=== PATIENT | female | born 1975 | race Caucasian/White ===

== ENCOUNTER → 2020-10-24 | Outpatient (CLI) | payer OTHER ==
[~2020-10-24] VITALS: Ht 167.6 cm; Wt 141.5 kg
[~2020-10-24] MED LIST: ALEVE220 M1 PO; BENADRYL25 MG PO; EPIPEN0.3 MG/0.1 IM; GABAPENTIN100 MG PO; MENOPAUSE SUPPO20 MG PO; METFORMIN HCL500 M3 PO; NORFLEX100 MG PO; OMEPRAZOLE 20 M20 M1 PO; PHENTERMINE H37.5 MG PO; PROPRANOLOL 8080 MG PO; SUPER THERAVIT1 EACH PO; SYNTHROID175 MCG PO; TRAMADOL 50 MG50 MG PO; TYLENOL325 M1 PO; VITAMIN D PO
[2020-10-24 11:15] VITALS: BP 140/84
--- NOTE | 2020-10-24 12:05 | NUR ---
Pain Clinic Assessment: 1. History of Osteoarthritis: * BACK ? History of Rheumatoid Arthritis: NO 2. Height: 5 ft. 6 in. 167.6 cm. Weight: 312.0 lb. oz. 141.523 kg. Patient's BMI: 50.4 3. Vital Signs: BP: 140/84 Pulse: 71 Resp: 16 Temp: 02 Sat: 98 ECG Mon: 4. Pain Intensity: 5 5. Fall Risk: Dizziness: N Needs help standing or walking: N Fallen in the last 3 months: N Fall risk comments: 6. Patient on Blood Thinner: None 7. History of Hypertension: N 8. Opioid Therapy greater than 6 weeks: Opiate Contract Signed: 9. Risk Assessment Tool Provided: 1-low risk 10. Functional Assessment Tool: 11. Recreational Drug Use: Never Drug Type: Tobacco Use: Never Smoker Tobacco Type: Amount or Packs/day: How Many Years: Alcohol Use: Yes Frequency: Weekly Quant: 3/WEEK
== END ==
LOC: PAIN 06:55
PROVIDERS: ATTEND Anesthesiology Pain Medicine
DX: M51.14 Intervertebral disc disorders with radiculopathy, thoracic region (principal); M51.24 Other intervertebral disc displacement, thoracic region; Z88.8 Allergy status to other drugs, medicaments and biological substances; Z79.899 Other long term (current) drug therapy

== ENCOUNTER → 2020-10-31 | Outpatient (CLI) | payer OTHER ==
[~2020-10-31] VITALS: Ht 167.6 cm; Wt 143.8 kg
[2020-10-31 15:11] VITALS: BP 155/96
--- NOTE | 2020-10-31 15:34 | NUR ---
Pain Clinic Assessment: 1. History of Osteoarthritis: * BACK History of Rheumatoid Arthritis: NO 2. Height: 5 ft. 6 in. 167.6 cm. Weight: 317.0 lb. oz. 143.791 kg. Patient's BMI: 51.2 3. Vital Signs: BP: 155/96 Pulse: 73 Resp: 16 Temp: 02 Sat: 96 ECG Mon: 4. Pain Intensity: 6 5. Fall Risk: Dizziness: N Needs help standing or walking: N Fallen in the last 3 months: N Fall risk comments: 6. Patient on Blood Thinner: None 7. History of Hypertension: N 8. Opioid Therapy greater than 6 weeks: Opiate Contract Signed: 9. Risk Assessment Tool Provided: 1-low risk 10. Functional Assessment Tool: 54/ 11. Recreational Drug Use: Never Drug Type: Tobacco Use: Never Smoker Tobacco Type: Amount or Packs/day: How Many Years: Alcohol Use: Yes Frequency: Weekly Quant: 3/week
== END | disposition home or self-care (01) ==
LOC: PAIN 09:41
PROVIDERS: ATTEND Anesthesiology Pain Medicine
DX: M51.14 Intervertebral disc disorders with radiculopathy, thoracic region (principal); Z98.890 Other specified postprocedural states

== ENCOUNTER → 2020-12-12 | Outpatient (CLI) | payer OTHER ==
[~2020-12-12] VITALS: Ht 167.6 cm; Wt 143.6 kg
[2020-12-12 09:17] VITALS: BP 121/90
--- NOTE | 2020-12-12 09:24 | NUR ---
Pain Clinic Assessment: 1. History of Osteoarthritis: * BACK History of Rheumatoid Arthritis: NO 2. Height: 5 ft. 6 in. 167.6 cm. Weight: 316.6 lb. oz. 143.609 kg. Patient's BMI: 51.1 3. Vital Signs: BP: 121/90 Pulse: 69 Resp: 18 Temp: 02 Sat: 94 ECG Mon: 4. Pain Intensity: 4 5. Fall Risk: Dizziness: N Needs help standing or walking: N Fallen in the last 3 months: N Fall risk comments: 6. Patient on Blood Thinner: None 7. History of Hypertension: N 8. Opioid Therapy greater than 6 weeks: Opiate Contract Signed: 9. Risk Assessment Tool Provided: 1-low risk 10. Functional Assessment Tool: 54/70 11. Recreational Drug Use: Never Drug Type: Tobacco Use: Never Smoker Tobacco Type: Amount or Packs/day: How Many Years: Alcohol Use: Yes Frequency: Quant:
== END ==
LOC: PAIN 06:50
PROVIDERS: ATTEND Anesthesiology Pain Medicine
DX: M54.14 Radiculopathy, thoracic region (principal); Z88.8 Allergy status to other drugs, medicaments and biological substances; Z79.899 Other long term (current) drug therapy

== ENCOUNTER → 2020-12-19 | Outpatient (CLI) | payer OTHER ==
[~2020-12-19] VITALS: Ht 167.6 cm; Wt 143.3 kg
[2020-12-19 08:45] VITALS: BP 136/91
--- NOTE | 2020-12-19 08:50 | NUR ---
Pain Clinic Assessment: 1. History of Osteoarthritis: * BACK History of Rheumatoid Arthritis: NO 2. Height: 5 ft. 6 in. 167.6 cm. Weight: 316.0 lb. oz. 143.337 kg. Patient's BMI: 51.0 3. Vital Signs: BP: 136/91 Pulse: 91 Resp: 18 Temp: 02 Sat: 96 ECG Mon: 4. Pain Intensity: 5 5. Fall Risk: Dizziness: N Needs help standing or walking: N Fallen in the last 3 months: N Fall risk comments: 6. Patient on Blood Thinner: None 7. History of Hypertension: N 8. Opioid Therapy greater than 6 weeks: Opiate Contract Signed: 9. Risk Assessment Tool Provided: 1-low risk 10. Functional Assessment Tool: 54/ 11. Recreational Drug Use: Never Drug Type: Tobacco Use: Never Smoker Tobacco Type: Amount or Packs/day: How Many Years: Alcohol Use: Yes Frequency: Quant:
== END | disposition home or self-care (01) ==
LOC: PAIN 12-16 07:29
PROVIDERS: ATTEND Anesthesiology Pain Medicine
DX: M54.14 Radiculopathy, thoracic region (principal); G89.29 Other chronic pain; Z98.890 Other specified postprocedural states; Z79.899 Other long term (current) drug therapy
CPT/HCPCS: 65075

== ENCOUNTER → 2021-01-20 | Outpatient (CLI) | payer OTHER ==
[~2021-01-20] VITALS: Ht 167.6 cm; Wt 143.8 kg
[~2021-01-20] MED LIST changes: +ENDOCET 5-3251 EACH PO
[2021-01-20 09:17] VITALS: BP 162/85
--- NOTE | 2021-01-20 09:23 | NUR ---
Pain Clinic Assessment: 1. History of Osteoarthritis: * BACK History of Rheumatoid Arthritis: NO 2. Height: 5 ft. 6 in. 167.6 cm. Weight: 317.0 lb. oz. 143.791 kg. Patient's BMI: 51.2 3. Vital Signs: BP: 162/85 Pulse: 72 Resp: 16 Temp: 02 Sat: 96 ECG Mon: 4. Pain Intensity: 7 5. Fall Risk: Dizziness: N Needs help standing or walking: N Fallen in the last 3 months: N Fall risk comments: 6. Patient on Blood Thinner: None 7. History of Hypertension: N 8. Opioid Therapy greater than 6 weeks: Opiate Contract Signed: 9. Risk Assessment Tool Provided: 1-low risk 10. Functional Assessment Tool: 54/70 11. Recreational Drug Use: Never Drug Type: Tobacco Use: Never Smoker Tobacco Type: Amount or Packs/day: How Many Years: Alcohol Use: No Frequency: Quant:
== END ==
LOC: PAIN 07:18
PROVIDERS: ATTEND Anesthesiology Pain Medicine
DX: R10.9 Unspecified abdominal pain (principal); E66.9 Obesity, unspecified; M51.24 Other intervertebral disc displacement, thoracic region; Z79.899 Other long term (current) drug therapy; Z79.891 Long term (current) use of opiate analgesic

== ENCOUNTER → 2021-02-07 | Outpatient (CLI) | payer OTHER ==
[2021-02-07 09:53] LABS: URINE BILIRUBIN NEGATIVE (Negative); URINE BLOOD NEGATIVE (Negative); URINE CLARITY CLEAR; URINE COLOR YELLOW; URINE GLUCOSE-RANDOM* NEGATIVE (Negative); URINE KETONES NEGATIVE (Negative); URINE LEUKOCYTES-REFLEX NEGATIVE (Negative); URINE NITRITE-REFLEX NEGATIVE (Negative); URINE PROTEIN (DIPSTICK) NEGATIVE (Negative); URINE SPECIFIC GRAVITY 1.025 (1.005-1.035); URINE UROBILINOGEN 0.2 E.U./dl (0.2-1.0)
== END ==
LOC: CAT 09:28 → LAB 09:45 → CAT 10:17 → LAB 10:54 → CAT 13:23
PROVIDERS: ATTEND Anesthesiology Pain Medicine
DX: N20.0 Calculus of kidney (principal); K57.30 Diverticulosis of large intestine without perforation or abscess without bleeding; K42.9 Umbilical hernia without obstruction or gangrene; Z90.710 Acquired absence of both cervix and uterus; Z90.49 Acquired absence of other specified parts of digestive tract

== ENCOUNTER → 2021-03-06 | Outpatient (CLI) | payer OTHER ==
[~2021-03-06] VITALS: Ht 170.2 cm; Wt 143.9 kg
[2021-03-06 10:33] VITALS: BP 136/84
--- NOTE | 2021-03-06 10:43 | NUR ---
Pain Clinic Assessment: 1. History of Osteoarthritis: * BACK History of Rheumatoid Arthritis: NO 2. Height: 5 ft. 7 in. 170.2 cm. Weight: 317.2 lb. oz. 143.881 kg. Patient's BMI: 49.7 3. Vital Signs: BP: 136/84 Pulse: 66 Resp: 18 Temp: 02 Sat: 97 ECG Mon: 4. Pain Intensity: 7 5. Fall Risk: Dizziness: N Needs help standing or walking: N Fallen in the last 3 months: N Fall risk comments: 6. Patient on Blood Thinner: None 7. History of Hypertension: N 8. Opioid Therapy greater than 6 weeks: Opiate Contract Signed: 9. Risk Assessment Tool Provided: 1-low risk 10. Functional Assessment Tool: 54/70 11. Recreational Drug Use: Never Drug Type: Tobacco Use: Never Smoker Tobacco Type: Amount or Packs/day: How Many Years: Alcohol Use: Yes Frequency: Monthly Quant: 1
== END ==
LOC: PAIN 08:31
PROVIDERS: ATTEND Anesthesiology Pain Medicine
DX: R07.81 Pleurodynia (principal); M54.6 Pain in thoracic spine; Z79.899 Other long term (current) drug therapy; Z79.891 Long term (current) use of opiate analgesic

== ENCOUNTER → 2021-03-31 | Outpatient (CLI) | payer OTHER ==
[~2021-03-31] VITALS: Ht 170.2 cm; Wt 141.0 kg
[2021-03-31 09:15] VITALS: BP 134/85
--- NOTE | 2021-03-31 09:19 | NUR ---
Pain Clinic Assessment: 1. History of Osteoarthritis: * BACK History of Rheumatoid Arthritis: NO 2. Height: 5 ft. 7 in. 170.2 cm. Weight: 310.8 lb. oz. 140.978 kg. Patient's BMI: 48.7 3. Vital Signs: BP: 134/85 Pulse: 68 Resp: 14 Temp: 02 Sat: 96 ECG Mon: 4. Pain Intensity: 8 5. Fall Risk: Dizziness: N Needs help standing or walking: N Fallen in the last 3 months: N Fall risk comments: 6. Patient on Blood Thinner: None 7. History of Hypertension: N 8. Opioid Therapy greater than 6 weeks: Opiate Contract Signed: 9. Risk Assessment Tool Provided: 1-low risk 10. Functional Assessment Tool: 54/70 11. Recreational Drug Use: Never Drug Type: Tobacco Use: Never Smoker Tobacco Type: Amount or Packs/day: How Many Years: Alcohol Use: Yes Frequency: Weekly Quant: 1
== END | disposition home or self-care (01) ==
LOC: PAIN 06:50
PROVIDERS: ATTEND Anesthesiology Pain Medicine
DX: G58.0 Intercostal neuropathy (principal); R07.89 Other chest pain; Z98.890 Other specified postprocedural states; Z79.899 Other long term (current) drug therapy

== ENCOUNTER → 2021-05-01 | Outpatient (CLI) | payer OTHER ==
[~2021-05-01] VITALS: Ht 170.2 cm; Wt 140.0 kg
[~2021-05-01] MED LIST changes: +LEVO-T100 MCG PO
[2021-05-01 11:25] VITALS: BP 132/90
--- NOTE | 2021-05-01 11:37 | NUR ---
Pain Clinic Assessment: 1. History of Osteoarthritis: * BACK History of Rheumatoid Arthritis: NO 2. Height: 5 ft. 7 in. 170.2 cm. Weight: 308.6 lb. oz. 139.980 kg. Patient's BMI: 48.3 3. Vital Signs: BP: 132/90 Pulse: 70 Resp: 16 Temp: 02 Sat: 100 ECG Mon: 4. Pain Intensity: 7 5. Fall Risk: Dizziness: N Needs help standing or walking: N Fallen in the last 3 months: N Fall risk comments: 6. Patient on Blood Thinner: None 7. History of Hypertension: N 8. Opioid Therapy greater than 6 weeks: Opiate Contract Signed: 9. Risk Assessment Tool Provided: 1-low risk 10. Functional Assessment Tool: / 11. Recreational Drug Use: Never Drug Type: Tobacco Use: Never Smoker Tobacco Type: Amount or Packs/day: How Many Years: Alcohol Use: Yes Frequency: Weekly Quant: WINE
== END | disposition home or self-care (01) ==
LOC: PAIN 07:09
PROVIDERS: ATTEND Anesthesiology Pain Medicine
DX: G58.0 Intercostal neuropathy (principal); G89.29 Other chronic pain; E66.01 Morbid (severe) obesity due to excess calories; Z68.42 Body mass index [BMI] 45.0-49.9, adult; Z98.890 Other specified postprocedural states

== ENCOUNTER → 2021-05-22 | Outpatient (CLI) | payer OTHER ==
[~2021-05-22] VITALS: Ht 170.2 cm; Wt 140.8 kg
[~2021-05-22] MED LIST changes: +CYMBALTA30 MG PO; +LYRICA 50 MG50 MG PO; +TRAMADOL HCL50 MG PO
[2021-05-22 15:15] VITALS: BP 155/94
--- NOTE | 2021-05-22 15:21 | NUR ---
Pain Clinic Assessment: 1. History of Osteoarthritis: * BACK History of Rheumatoid Arthritis: NO 2. Height: 5 ft. 7 in. 170.2 cm. Weight: 310.4 lb. oz. 140.797 kg. Patient's BMI: 48.6 3. Vital Signs: BP: 155/94 Pulse: 69 Resp: 18 Temp: 02 Sat: 100 ECG Mon: 4. Pain Intensity: 7 5. Fall Risk: Dizziness: N Needs help standing or walking: N Fallen in the last 3 months: N Fall risk comments: 6. Patient on Blood Thinner: None 7. History of Hypertension: N 8. Opioid Therapy greater than 6 weeks: Opiate Contract Signed: 9. Risk Assessment Tool Provided: 1-low risk 10. Functional Assessment Tool: 54/70 11. Recreational Drug Use: Never Drug Type: Tobacco Use: Never Smoker Tobacco Type: Amount or Packs/day: How Many Years: Alcohol Use: Yes Frequency: Quant:
== END ==
LOC: PAIN 13:18
PROVIDERS: ATTEND Anesthesiology Pain Medicine
DX: R07.89 Other chest pain (principal); Z79.899 Other long term (current) drug therapy; Z79.891 Long term (current) use of opiate analgesic

== ENCOUNTER → 2021-06-26 | Outpatient (CLI) | payer OTHER ==
[~2021-06-26] VITALS: Ht 170.2 cm; Wt 138.5 kg
[~2021-06-26] MED LIST changes: +PERCOCET 5-3251 EACH PO
[2021-06-26 14:01] VITALS: BP 128/87
--- NOTE | 2021-06-26 14:12 | NUR ---
Pain Clinic Assessment: 1. History of Osteoarthritis: * BACK History of Rheumatoid Arthritis: NO 2. Height: 5 ft. 7 in. 170.2 cm. Weight: 305.4 lb. oz. 138.529 kg. Patient's BMI: 47.8 3. Vital Signs: BP: 128/87 Pulse: 72 Resp: 14 Temp: 02 Sat: 98 ECG Mon: 4. Pain Intensity: 6 5. Fall Risk: Dizziness: N Needs help standing or walking: N Fallen in the last 3 months: N Fall risk comments: 6. Patient on Blood Thinner: None 7. History of Hypertension: N 8. Opioid Therapy greater than 6 weeks: Y Opiate Contract Signed: 9. Risk Assessment Tool Provided: 1-low risk 10. Functional Assessment Tool: 54/ 11. Recreational Drug Use: Never Drug Type: Tobacco Use: Never Smoker Tobacco Type: Amount or Packs/day: How Many Years: Alcohol Use: Yes Frequency: Quant:
== END ==
LOC: PAIN 10:05
PROVIDERS: ATTEND Anesthesiology Pain Medicine
DX: M51.24 Other intervertebral disc displacement, thoracic region (principal); R07.89 Other chest pain; Z88.8 Allergy status to other drugs, medicaments and biological substances; Z79.899 Other long term (current) drug therapy; Z79.891 Long term (current) use of opiate analgesic

== ENCOUNTER → 2021-09-08 | Outpatient (CLI) | payer OTHER ==
[~2021-09-08] VITALS: Ht 170.2 cm; Wt 143.3 kg
[~2021-09-08] MED LIST changes: +NEXIUM40 MG PO
[2021-09-08 14:37] VITALS: BP 146/97
--- NOTE | 2021-09-08 14:49 | NUR ---
Pain Clinic Assessment: 1. History of Osteoarthritis: * BACK History of Rheumatoid Arthritis: NO 2. Height: 5 ft. 7 in. 170.2 cm. Weight: 316.0 lb. oz. 143.337 kg. Patient's BMI: 49.5 3. Vital Signs: BP: 146/97 Pulse: 67 Resp: 20 Temp: 02 Sat: 99 ECG Mon: 4. Pain Intensity: 5 5. Fall Risk: Dizziness: N Needs help standing or walking: N Fallen in the last 3 months: N Fall risk comments: 6. Patient on Blood Thinner: None 7. History of Hypertension: N 8. Opioid Therapy greater than 6 weeks: Y Opiate Contract Signed: 9. Risk Assessment Tool Provided: 1-low risk 10. Functional Assessment Tool: 54/70 11. Recreational Drug Use: Never Drug Type: Tobacco Use: Never Smoker Tobacco Type: Amount or Packs/day: How Many Years: Alcohol Use: Yes Frequency: Weekly Quant: 3
== END | disposition home or self-care (01) ==
LOC: PAIN 07-31 11:21
PROVIDERS: ATTEND Anesthesiology Pain Medicine
DX: M79.18 Myalgia, other site (principal); R07.89 Other chest pain; E66.01 Morbid (severe) obesity due to excess calories; Z98.890 Other specified postprocedural states; Z79.899 Other long term (current) drug therapy